=== PATIENT | male | born 1995 | race American Indian/Alaskan Native ===

== ENCOUNTER 2018-09-19 13:18 | Emergency (ER) | payer OTHER ==
[2018-09-19 13:47] VITALS: BP 114/75
--- NOTE | 2018-09-19 13:51 | Emergency Department Report ---
Blank Doc - Documentation Documentation: 23 y o male presents to ED with right eye pain and swelling x 3 day no vision loss, no trauma, ACC eval
[2018-09-19] MEDS ORDERED: CLEOCIN 300 MG/50 mL 300 MG/50 ML BAG IV ONE (15:07)
--- NOTE | 2018-09-19 15:16 | Emergency Department Report ---
ED Eye Problem HPI - General Chief complaint: Eye Problems Stated complaint: RT EYE SWELLING Time Seen by Provider: 09/19/18 13:46 Source: patient Mode of arrival: Ambulatory Limitations: No Limitations - History of Present Illness Initial comments: 23-year-old -Fil[place]ino male presents to the emergency room for complaint of right eye swelling that began 3 days ago that has gotten worse in the this morning. Patient reports drainage from the right eye. Denies any recent injuries. He does admit to last matting. Denies any past medical history takes no medications on a daily basis and has no known drug allergies. Onset/Timin -: days(s) Onset Description: sudden Location: right eye Eye Symptoms: other (swelling) Severity: moderate Consistency: constant Associated Symptoms: none Treatments Prior to Arrival: none - Related Data Patient Tetanus UTD: Yes Previous Rx's Medication Instructions Recorded Last Taken Type Clindamycin [Clindamycin CAP] 600 mg PO BID 10 Days #20 capsule 09/19/18 Unknown Rx Allergies Allergy/AdvReac Type Severity Reaction Status Date / Time No Known Allergies Allergy Unverified 09/19/18 13:20 ED Review of Systems ROS: Stated complaint: RT EYE SWELLING Other details as noted in HPI Comment: All other systems reviewed and negative ED Past Medical Hx - Past Medical History Previous Medical History?: No - Surgical History Past Surgical History?: No - Social History Smoking Status: Never Smoker Substance Use Type: None - Medications Home Medications: Home Medications Medication Instructions Recorded Confirmed Last Taken Type Clindamycin [Clindamycin CAP] 600 mg PO BID 10 Days #20 capsule 09/19/18 Unknown Rx ED Physical Exam - General Limitations: No Limitations General appearance: alert, in no apparent distress - Head Head exam: Present: atraumatic, normocephalic - Eye Eye exam: Present: periorbital swelling, other (right eye stye to the lower rim of eyelid). Absent: periorbital tenderness - ENT ENT exam: Present: mucous membranes moist - Neurological Exam Neurological exam: Present: alert, oriented X3 - Psychiatric Psychiatric exam: Present: normal affect, normal mood - Skin Skin exam: Present: warm, dry, intact, normal color. Absent: rash ED Course Vital Signs 09/19/18 13:45 Temperature 98.6 F Pulse Rate 74 Respiratory 16 Rate Blood Pressure 114/75 O2 Sat by Pulse 99 Oximetry ED Medical Decision Making - Medical Decision Making 3-year-old male presents for right patient appears to have a periorbital cellulitis secondary to a infected sty. Patient of the Critical care attestation.: If time is entered above; I have spent that time in minutes in the direct care of this critically ill patient, excluding procedure time. ED Disposition Clinical Impression: Cellulitis of right orbital region Disposition: DC-01 TO HOME OR SELFCARE Is pt being admited?: No Does the pt Need Aspirin: No Condition: Stable Instructions: Orbital Cellulitis (ED) Additional Instructions: Antibiotics as prescribed. Follow-up with patron attendant if his symptoms get worse. Prescriptions: Clindamycin [Clindamycin CAP] 600 mg PO BID 10 Days #20 capsule Referrals: BAIRON MENDOZA MD [Primary Care Provider] - 3-5 Days Forms: Work/School Release Form(ED)
== END 2018-09-19 17:45 | disposition home or self-care (01) ==
LOC: ED 13:18
DX: H05.011 Cellulitis of right orbit (principal)
CPT/HCPCS: 96365